=== PATIENT | female | born 1995 | race Caucasian/White ===

== ENCOUNTER 2018-03-25 13:18 | Outpatient (CLI) | payer OTHER ==
[2018-03-25 14:47] LABS: ADD MAN DIFF? NO
[2018-03-25 14:52] LABS: BASOPHILS % 0.2 % (0.0-2.0); EOSINOPHILS # 0.1 10^3/ul (0.0-0.5); EOSINOPHILS % 1.1 % (0.0-7.0); HEMATOCRIT 34.9 % (37.0-47.0); HEMOGLOBIN 12.3 g/dl (12.0-16.0); IMMATURE GRANS #M 0.15 10^3/ul; IMMATURE GRANS % (M) 1.5 %; LYMPHOCYTES # 1.8 10^3/ul (0.8-2.9); LYMPHOCYTES % 17.6 % (18.0-55.0); MEAN CORPUSCULAR HEMOGLOBIN 30.9 pg (29.0-33.0); MEAN CORPUSCULAR HGB CONC 35.2 g/dl (32.0-37.0); MEAN CORPUSCULAR VOLUME 87.7 fl (72.0-104.0); MEAN PLATELET VOLUME 11.3 fl (7.4-10.4); MONOCYTE # 0.5 10^3/ul (0.3-0.9); MONOCYTES % 4.7 % (0.0-13.0); NEUTROPHIL # 7.5 10^3/ul (1.6-7.5); NEUTROPHILS % 74.9 % (30.0-74.0); PLATELET COUNT 146 10^3/UL (140-415); RED BLOOD COUNT 3.98 10^6/ul (4.20-5.40); RED CELL DISTRIBUTION WIDTH 13.1 % (11.5-14.5)
[2018-03-25 15:44] LABS: ADD UMIC YES; UR ASCORBIC ACID NEGATIVE (NEGATIVE); UR BILIRUBIN (Dip) NEGATIVE (NEGATIVE); UR BLOOD (Dip) 1+ mg/dL (NEGATIVE); UR CLARITY CLEAR (CLEAR); UR COLOR COLORLESS (YELLOW); UR GLUCOSE (Dip) NEGATIVE (NEGATIVE); UR KETONES (Dip) NEGATIVE (NEGATIVE); UR LEUKOCYTE ESTERASE (Dip) NEGATIVE Leu/ul (NEGATIVE); UR NITRITE (Dip) NEGATIVE (NEGATIVE); UR RBC 0 /HPF (0-5); UR SPECIFIC GRAVITY (Dip) 1.004 (1.003-1.030); UR TOTAL PROTEIN (Dip) NEGATIVE (NEGATIVE); UR UROBILINOGEN (Dip) NEGATIVE (NEGATIVE); UR WBC 0 /HPF (0-5)
[2018-03-25] MEDS ORDERED: BETAMET NA PHOS/AC(6 MG/ML) 5ML INJ IM (17:30)
[2018-03-25] MEDS: BETAMET NA PHOS/AC(6 MG/ML) 5ML INJ IM (17:37)
== END 2018-03-25 17:47 | disposition home or self-care (01) ==
LOC: OBT 13:18 → L-D 13:18 → OBT 17:47
DX: O62.9 Abnormality of forces of labor, unspecified (principal); Z3A.23 23 weeks gestation of pregnancy
CPT/HCPCS: 36415; 76815; 76817; 81001; 82731; 85025; 86850; 86900; 86901

== ENCOUNTER 2018-03-26 17:34 | Outpatient (CLI) | payer OTHER ==
[2018-03-26] MEDS: BETAMET NA PHOS/AC(6 MG/ML) 5ML INJ IM (19:24)
== END 2018-03-26 20:40 | disposition home or self-care (01) ==
LOC: OBT 17:34 → L-D 17:35 → OBT 20:40
DX: O46.8X2 Other antepartum hemorrhage, second trimester (principal); Z3A.24 24 weeks gestation of pregnancy
CPT/HCPCS: 76815; 76817

== ENCOUNTER 2018-05-05 14:30 | Inpatient (IN) | payer OTHER ==
[2018-05-05 16:48] LABS: ADD UMIC YES; UR ASCORBIC ACID 20 mg/dL (NEGATIVE); UR BACTERIA FEW /HPF (NONE SEEN); UR BILIRUBIN (Dip) NEGATIVE (NEGATIVE); UR BLOOD (Dip) NEGATIVE (NEGATIVE); UR CLARITY SLIGHTLY CLOUDY (CLEAR); UR COLOR YELLOW (YELLOW); UR GLUCOSE (Dip) NEGATIVE (NEGATIVE); UR KETONES (Dip) NEGATIVE (NEGATIVE); UR LEUKOCYTE ESTERASE (Dip) TRACE Leu/ul (NEGATIVE); UR NITRITE (Dip) NEGATIVE (NEGATIVE); UR RBC 0 /HPF (0-5); UR SPECIFIC GRAVITY (Dip) 1.011 (1.003-1.030); UR SQUAMOUS EPITHELIAL CELL FEW /HPF (FEW); UR TOTAL PROTEIN (Dip) NEGATIVE (NEGATIVE); UR UROBILINOGEN (Dip) NEGATIVE (NEGATIVE); UR WBC 1 /HPF (0-5)
[2018-05-05] MEDS: LACTATED RINGER'S 1,000 ML IV (20:19)
[2018-05-05] MEDS: CEFAZOLIN 2 GM/50 ML (PMX) 50 ML IV (21:58)
[2018-05-05] MEDS: ACETAMINOPHEN 325 MG TAB PO (23:54)
[2018-05-06] MEDS: LACTATED RINGER'S 1,000 ML IV ×3 (03:25→21:58)
[2018-05-06] MEDS: CEFAZOLIN 2 GM/50 ML (PMX) 50 ML IV ×3 (06:01→21:57)
[2018-05-06] MEDS: PRENATAL VITAMIN PO (09:12)
[2018-05-06] MEDS: CALCIUM CARBONATE 500 MG CHEW TAB PO (15:55)
[2018-05-06] MEDS: FAMOTIDINE 20 MG INJ IV (21:58)
[2018-05-07] MEDS: LACTATED RINGER'S 1,000 ML IV (02:15)
[2018-05-07] MEDS: CEFAZOLIN 2 GM/50 ML (PMX) 50 ML IV ×2 (05:45→14:00)
[2018-05-07] MEDS: FAMOTIDINE 20 MG INJ IV (09:28)
[2018-05-07] MEDS: PRENATAL VITAMIN PO (09:28)
[2018-05-07 11:44] LABS: ADD UMIC NO; UR ASCORBIC ACID NEGATIVE (NEGATIVE); UR BILIRUBIN (Dip) NEGATIVE (NEGATIVE); UR BLOOD (Dip) NEGATIVE (NEGATIVE); UR CLARITY CLEAR (CLEAR); UR COLOR STRAW (YELLOW); UR GLUCOSE (Dip) NEGATIVE (NEGATIVE); UR KETONES (Dip) NEGATIVE (NEGATIVE); UR LEUKOCYTE ESTERASE (Dip) NEGATIVE Leu/ul (NEGATIVE); UR NITRITE (Dip) NEGATIVE (NEGATIVE); UR SPECIFIC GRAVITY (Dip) 1.011 (1.003-1.030); UR TOTAL PROTEIN (Dip) NEGATIVE (NEGATIVE); UR UROBILINOGEN (Dip) NEGATIVE (NEGATIVE)
== END 2018-05-07 15:05 | disposition home or self-care (01) | DRG 781 ==
LOC: OBT 14:30 → L-D 14:30 → OBT 18:13 → L-D 18:13
DX: O99.89 Other specified diseases and conditions complicating pregnancy, childbirth and the puerperium (principal); N13.30 Unspecified hydronephrosis; Z3A.29 29 weeks gestation of pregnancy
CPT/HCPCS: 76775; 76815; 76817; 76818; 81001; 81003; 87086

== ENCOUNTER 2018-07-01 17:14 | Inpatient (IN) | payer OTHER ==
[2018-07-01] MEDS ORDERED: METHYLERGONOVINE 0.2 MG INJ IM (18:30)
[2018-07-01] MEDS ORDERED: OXYTOCIN 30 UNITS/LR 500 ML IV (18:30)
[2018-07-01] MEDS ORDERED: CARBOPROST 250 MCG INJ IM (18:30)
[2018-07-01] MEDS ORDERED: MISOPROSTOL 200 MCG TAB PR (18:30)
[2018-07-01 19:29] LABS: ADD MAN DIFF? NO
[2018-07-01 19:32] LABS: BASOPHILS % 0.3 % (0.0-2.0); EOSINOPHILS # 0.1 10^3/ul (0.0-0.5); EOSINOPHILS % 0.9 % (0.0-7.0); HEMATOCRIT 42.6 % (37.0-47.0); HEMOGLOBIN 14.3 g/dl (12.0-16.0); LYMPHOCYTES # 2.1 10^3/ul (0.8-2.9); LYMPHOCYTES % 19.4 % (15.0-51.0); MEAN CORPUSCULAR HEMOGLOBIN 29.5 pg (29.0-33.0); MEAN CORPUSCULAR HGB CONC 33.6 g/dl (32.0-37.0); MEAN CORPUSCULAR VOLUME 87.8 fl (82.0-101.0); MEAN PLATELET VOLUME 11.8 fl (7.4-10.4); MONOCYTE # 0.6 10^3/ul (0.3-0.9); MONOCYTES % 5.2 % (0.0-11.0); NEUTROPHILS % 73.2 % (39.0-77.0); PLATELET COUNT 154 10^3/UL (140-415); RED BLOOD COUNT 4.85 10^6/ul (4.20-5.40); RED CELL DISTRIBUTION WIDTH 13.1 % (11.5-14.5)
[2018-07-01] MEDS: LACTATED RINGER'S 1,000 ML IV ×3 (19:39→21:56)
[2018-07-01 19:51] LABS: INR 0.86; PROTIME 11.8 Sec (11.9-14.9); PT RATIO 0.9
[2018-07-01 19:52] LABS: PARTIAL THROMBOPLASTIN TIME 26.7 Sec (23.0-35.0)
[2018-07-01 20:23] LABS: HEPATITIS B SURFACE ANTIGEN NEGATIVE (NEGATIVE)
[2018-07-01] MEDS ORDERED: METOCLOPRAMIDE 10 MG INJ (20:30)
[2018-07-01] MEDS ORDERED: FAMOTIDINE 20 MG INJ (20:31)
[2018-07-01 20:42] LABS: AMPHETAMINE/METHAMPHETAMINE Negative (NEGATIVE); BARBITURATES Negative (NEGATIVE); BENZODIAZEPINES Negative (NEGATIVE); CANNABINOIDS Negative (NEGATIVE); COCAINE Negative (NEGATIVE); OPIATES Negative (NEGATIVE)
[2018-07-01] MEDS: FAMOTIDINE 20 MG INJ IV (21:16)
[2018-07-01] MEDS: METOCLOPRAMIDE 10 MG INJ IV (21:18)
[2018-07-01] MEDS ORDERED: morphine SULFATE/PF (10 MG/10 ML) INJ (21:48)
[2018-07-01] MEDS ORDERED: FENTAnyl 50 MCG/ML VIAL (21:48)
[2018-07-01] MEDS ORDERED: ONDANSETRON 4 MG INJ (22:02)
[2018-07-01] MEDS ORDERED: DEXAMETHASONE 4 MG/ML 1 ML INJ (22:02)
[2018-07-01] MEDS ORDERED: DIPHENHYDRAMINE 50 MG INJ (22:04)
[2018-07-01] MEDS ORDERED: HYDROmorphONE 0.5 MG/0.5 ML SYG IV ×2 (23:00)
[2018-07-01] MEDS ORDERED: ZOLPIDEM 5 MG TAB PO (23:00)
[2018-07-01] MEDS ORDERED: ONDANSETRON 4 MG INJ IV (23:00)
[2018-07-01] MEDS ORDERED: NALOXONE (0.4 MG/ML) INJ IV (23:00)
[2018-07-02] MEDS: CEFAZOLIN 2 GM/50 ML (PMX) 50 ML IVPB ×2 (00:03→00:04)
[2018-07-02] MEDS: DIPHENHYDRAMINE 50 MG INJ IV (00:38)
[2018-07-02] MEDS: OXYTOCIN 30 UNITS/LR 500 ML IV ×2 (01:36→03:50)
[2018-07-02 01:50] LABS: HEPATITIS C VIRAL ANTIBODY NEGATIVE (NEGATIVE)
[2018-07-02] MEDS ORDERED: METHYLERGONOVINE 0.2 MG INJ IM (02:00)
[2018-07-02] MEDS ORDERED: CARBOPROST 250 MCG INJ IM (02:00)
[2018-07-02] MEDS ORDERED: OXYTOCIN 30 UNITS/LR 500 ML IV (02:00)
[2018-07-02] MEDS ORDERED: MISOPROSTOL 200 MCG TAB PR (02:00)
[2018-07-02] MEDS ORDERED: LANOLIN 7 GM TUBE TOP (02:00)
[2018-07-02] MEDS ORDERED: METHYLERGONOVINE 0.2 MG TAB PO (02:00)
[2018-07-02] MEDS: KETOROLAC 30 MG INJ IV ×3 (05:50→21:35)
[2018-07-02] MEDS: IBUPROFEN 800 MG TAB PO ×3 (06:00→22:00)
[2018-07-02] MEDS: SENNA/DOCUSATE NA (8.6MG/50MG) TAB PO ×2 (09:13→21:35)
[2018-07-02] MEDS: DEXTROSE 5%-LR 1,000 ML IV ×2 (09:16→17:27)
[2018-07-02 15:07] LABS: RAPID PLASMA REAGIN NONREACTIVE (NR)
[2018-07-03] MEDS: IBUPROFEN 800 MG TAB PO ×3 (03:27→21:19)
[2018-07-03] MEDS: HYDROCODONE/APAP (5/325) TAB PO (05:12)
[2018-07-03 08:07] LABS: ADD MAN DIFF? NO
[2018-07-03 08:17] LABS: WHITE BLOOD COUNT 11.2 10^3/ul (4.8-10.8)
[2018-07-03 08:17] LABS: BASOPHILS % 0.4 % (0.0-2.0); EOSINOPHILS # 0.1 10^3/ul (0.0-0.5); EOSINOPHILS % 1.3 % (0.0-7.0); HEMATOCRIT 38.7 % (37.0-47.0); HEMOGLOBIN 12.7 g/dl (12.0-16.0); LYMPHOCYTES # 2.6 10^3/ul (0.8-2.9); LYMPHOCYTES % 23.3 % (15.0-51.0); MEAN CORPUSCULAR HEMOGLOBIN 29.4 pg (29.0-33.0); MEAN CORPUSCULAR HGB CONC 32.8 g/dl (32.0-37.0); MEAN CORPUSCULAR VOLUME 89.6 fl (82.0-101.0); MEAN PLATELET VOLUME 12.1 fl (7.4-10.4); MONOCYTE # 0.6 10^3/ul (0.3-0.9); MONOCYTES % 5.6 % (0.0-11.0); NEUTROPHIL # 7.7 10^3/ul (1.6-7.5); NEUTROPHILS % 68.5 % (39.0-77.0); PLATELET COUNT 139 10^3/UL (140-415); RED BLOOD COUNT 4.32 10^6/ul (4.20-5.40); RED CELL DISTRIBUTION WIDTH 13.5 % (11.5-14.5)
[2018-07-03] MEDS: HYDROCODONE/APAP (5/325) TAB GTB ×3 (10:31→23:00)
[2018-07-03] MEDS: SENNA/DOCUSATE NA (8.6MG/50MG) TAB PO ×2 (10:31→21:19)
[2018-07-03] MEDS: DIPHTH/TET/ACEL PERTUSS (ADULT) 0.5 ML VIAL IM* (19:31)
[2018-07-03 21:04] LABS: ADD MAN DIFF? NO
[2018-07-03 21:07] LABS: WHITE BLOOD COUNT 9.3 10^3/ul (4.8-10.8)
[2018-07-03 21:07] LABS: BASOPHILS % 0.2 % (0.0-2.0); EOSINOPHILS # 0.1 10^3/ul (0.0-0.5); EOSINOPHILS % 1.2 % (0.0-7.0); HEMATOCRIT 36.7 % (37.0-47.0); HEMOGLOBIN 12.2 g/dl (12.0-16.0); LYMPHOCYTES # 2.1 10^3/ul (0.8-2.9); MEAN CORPUSCULAR HEMOGLOBIN 29.8 pg (29.0-33.0); MEAN CORPUSCULAR HGB CONC 33.2 g/dl (32.0-37.0); MEAN CORPUSCULAR VOLUME 89.7 fl (82.0-101.0); MEAN PLATELET VOLUME 11.6 fl (7.4-10.4); MONOCYTE # 0.5 10^3/ul (0.3-0.9); MONOCYTES % 5.6 % (0.0-11.0); NEUTROPHIL # 6.4 10^3/ul (1.6-7.5); NEUTROPHILS % 68.9 % (39.0-77.0); PLATELET COUNT 137 10^3/UL (140-415); RED BLOOD COUNT 4.09 10^6/ul (4.20-5.40); RED CELL DISTRIBUTION WIDTH 13.2 % (11.5-14.5)
[2018-07-04] MEDS: HYDROCODONE/APAP (5/325) TAB GTB ×3 (05:30→18:08)
[2018-07-04] MEDS: IBUPROFEN 800 MG TAB PO ×2 (05:31→15:10)
[2018-07-04] MEDS: SENNA/DOCUSATE NA (8.6MG/50MG) TAB PO (10:15)
[2018-07-04] MEDS: HYDROCODONE/APAP (5/325) TAB PO (20:09)
[2018-07-05] MEDS ORDERED: MEASLES,MUMPS,RUBELLA VACCINE INJ SC* (09:00)
[2018-07-05] MEDS ORDERED: DIPHTH/TET/ACEL PERTUSS (ADULT) 0.5 ML VIAL IM* (09:00)
== END 2018-07-04 21:00 | disposition home or self-care (01) | DRG 788 ==
LOC: OBT 17:14 → PP1 07-02 01:58 → L-D 17:15 → OBT 18:30 → L-D 18:54
PROVIDERS: Obstetrics & Gynecology
PROC: 4A1HXCZ Monitoring of Products of Conception, Cardiac Rate, External Approach (ICD-10-PCS; 2018-07-01 21:00)
DX: O34.211 Maternal care for low transverse scar from previous cesarean delivery (principal); Z3A.38 38 weeks gestation of pregnancy; Z37.0 Single live birth; Z23 Encounter for immunization
CPT/HCPCS: 76818; 80307; 85025; 85610; 85730; 86592; 86803; 86850; 86900; 86901; 87340; 90715; 99464

== ENCOUNTER 2019-03-31 16:46 | Emergency (ER) | payer OTHER ==
[2019-03-31] MEDS: SOD CHLORIDE 0.9% 1,000 ML IV (17:39)
[2019-03-31 17:44] LABS: WHITE BLOOD COUNT 9.3 10^3/ul (4.8-10.8)
[2019-03-31 17:44] LABS: ADD MAN DIFF? NO; BASOPHILS % 0.3 % (0.0-2.0); EOSINOPHILS % 0.3 % (0.0-7.0); HEMATOCRIT 41.9 % (37.0-47.0); LYMPHOCYTES # 1.6 10^3/ul (0.8-2.9); LYMPHOCYTES % 17.2 % (15.0-51.0); MEAN CORPUSCULAR HEMOGLOBIN 28.3 pg (29.0-33.0); MEAN CORPUSCULAR HGB CONC 33.4 g/dl (32.0-37.0); MEAN CORPUSCULAR VOLUME 84.6 fl (82.0-101.0); MEAN PLATELET VOLUME 10.8 fl (7.4-10.4); MONOCYTE # 0.4 10^3/ul (0.3-0.9); MONOCYTES % 4.1 % (0.0-11.0); NEUTROPHIL # 7.2 10^3/ul (1.6-7.5); NEUTROPHILS % 77.7 % (39.0-77.0); PLATELET COUNT 189 10^3/UL (140-415); RED BLOOD COUNT 4.95 10^6/ul (4.20-5.40)
[2019-03-31 17:48] LABS: ADD UMIC YES; UR ASCORBIC ACID 40 mg/dL (NEGATIVE); UR BILIRUBIN (Dip) NEGATIVE (NEGATIVE); UR BLOOD (Dip) NEGATIVE (NEGATIVE); UR CLARITY SLIGHTLY CLOUDY (CLEAR); UR COLOR YELLOW (YELLOW); UR GLUCOSE (Dip) NEGATIVE (NEGATIVE); UR KETONES (Dip) NEGATIVE (NEGATIVE); UR LEUKOCYTE ESTERASE (Dip) 1+ Leu/ul (NEGATIVE); UR NITRITE (Dip) NEGATIVE (NEGATIVE); UR RBC 2 /HPF (0-5); UR SPECIFIC GRAVITY (Dip) 1.011 (1.003-1.030); UR SQUAMOUS EPITHELIAL CELL MODERATE /HPF (FEW); UR TOTAL PROTEIN (Dip) NEGATIVE (NEGATIVE); UR UROBILINOGEN (Dip) NEGATIVE (NEGATIVE); UR WBC 1 /HPF (0-5)
[2019-03-31 18:02] LABS: ALANINE AMINOTRANSFERASE 25 IU/L (13-69); ALBUMIN 4.4 g/dl (3.3-4.9); ALBUMIN/GLOBULIN RATIO 1.29; ALKALINE PHOSPHATASE 63 IU/L (42-121); ANION GAP 12 (5-13); ASPARTATE AMINO TRANSFERASE 22 IU/L (15-46); BILIRUBIN,INDIRECT 0.4 mg/dl (0-1.1); BILIRUBIN,TOTAL 0.4 mg/dl (0.2-1.3); BLOOD UREA NITROGEN 8 mg/dl (7-20); CALCIUM 9.3 mg/dl (8.4-10.2); CARBON DIOXIDE 24 mmol/L (21-31); CHLORIDE 101 mmol/L (97-110); CREATININE 0.57 mg/dl (0.44-1.00); Estimated GFR > 60 mL/min (>60); GLUCOSE 103 mg/dl (70-220); POTASSIUM 3.6 mmol/L (3.5-5.1); SODIUM 137 mmol/L (135-144); TOTAL PROTEIN 7.8 g/dl (6.1-8.1)
== END 2019-03-31 19:28 | disposition home or self-care (01) ==
LOC: FTE 16:46
DX: O23.40 Unspecified infection of urinary tract in pregnancy, unspecified trimester (principal); R53.1 Weakness; Z3A.00 Weeks of gestation of pregnancy not specified
CPT/HCPCS: 80053; 81001; 81025; 85025; 87086; 93005; 99284-25